=== PATIENT | female | born 1960 | race Caucasian/White ===

== ENCOUNTER 2021-02-24 18:24 | Emergency (ER) | payer OTHER ==
--- OUTSIDE RECORDS SUMMARY | 2021-02-24 18:27 | XMS REPORT | Continuity of Care Document ---
:1960 Author Organization [facility] t Address [address] [place] [address] Care Team Providers Name Role Phone Jesi FISHER, J. Primary Care Physician Yessy FISHER, M. Attending Clinician Phong REHMAN Attending Clinician Unavailable Payers Payer Name Policy Type Policy Effective Date Expiration Date Sour ce Number [facility] MEDICAREUNITED [id number] 2018 [facility] 00:00:00 [employer] [id number] Problems Condition Condition Condition Status Onset Resolution Last Treating Co mments Source Name Details Category Date Date Treatment Clinician Date Major Major Problem Active [place] depressive Depressive 4-26 da disorder Disorder 00:00: [facility] 00 al [facility] Disorder Disorder Problem Active [place]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 4-26 da 00:00: [facility] Other Other Disease Active 2017-09 [place] osteoporos osteoporos 1-21 Hi thodi is without is without 00:00: st current current 00 pathologic pathologic al al fracture fracture Avascular 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 Bharti ston necrosis necrosis - Method i 00:00: st 00 Adjustment 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 [facility]cop emotional Emotional al features Features Health Outreac h Program Allergies, Adverse Reactions, Alerts Allergy Allergy Status Severity Reaction(s) Onset Inactive Treating Comm ents Source Name Type Date Date Clinician milnacip DA Active SV 2020-0 [facility] [place] 00:00: [place] 00 [facility] codeine DA Active CA 2020-0 [facility] 3[facility]04 [place] 00[facility] oxycodon DA Active SV 2020-0 [facility] e [facility] [place] 00:[facility] quetiapi DA Active SV 2020-0 [facility] ne [facility]-04 [place] 00[facility] milnacip DA Active SV 2020-0 [facility] ran 3-04 [place] 00:00: [facility] oxycodon DA Active SV 2020-0 [facility] e [facility]-13 [place] 00:00: [facility] acetamin DA Active SV 2020-0 [facility] ophen 2-13 [place] 00:00: [facility] 00 [facility] quetiapi DA Active SV 2020-0 [facility] ne [facility]-13 [place] 00:00: [facility] 00 [facility] EVENITY DA Active SV 2020-0 [facility] 2[facility]13 [place] 00:00: [facility] 00 [facility] Milnacip Propensi Active 2017-09 [place] ran ty to 09-25 [facility] adverse 00:00: st reaction 00 s to drug codeine DA Active CA 2017-0 [facility] 5-10 [place] 00:00: [facility] 00 [facility] milnacip DA Active SV 2017-0 [facility] ran 5-10 [place] 00:00: [facility] 00 [facility] Family History Family Member Diagnosis Comments Start Date Stop Date Source Maternal grandmother Osteoporosis Tone Jama Natural mother Osteoporosis Esa Jama Social History Social Habit Start Date Stop Date Quantity Comments Source History SDOH [place] [facility] Binge Tobacco use and 2020-05-29 2020-05-29 Never used Esa Acharya ethodist exposure 00:00:00 00:00:00 Alcohol intake 2020-05-29 2020-05-29 Current Esa Roman thodist 00:00:00 00:00:00 non-drinker of alcohol (finding) History SDOH 2020-05-29 2020-05-29 1 See Meth odist Alcohol Frequency 00:00:00 00:00:00 Alcohol Comment 2018-07-26 2018-07-26 quit Esa Acharya ethodist 00:00:00 00:00:00 Sex [birth year] Esa Acharya ethodist 00:00:00 00:00:00 Smoking Status Start Date Stop Date Source Light Tobacco Smoker [facility] Current every day smoker 2020-05-29 00:00:00 Bharti Jama Medications Ordered Filled Start Stop Current Ordering Indication Dosage Frequency Signature Comments Components Source Medication Medication Date Date Medication? Clinician (SIG) Name Name mecobal/lev 2020-0 Yes Take by Bharti farfan omefolat 05-29 mouth. Methodi Ca/B6 phos 11:18: st (METANX 33 ORAL) oxyCODone-a 2020-0 Yes 1{tbl} Q4H Take 1 Ho [facility] cetaminophe 05-29 tablet by Met leslie lopez 11:18: mouth st (PERCOCET) 33 every 4 10-325 mg (four) per tablet hours as needed for moderate pain. ondansetron 2020-0 Yes 4mg Q8H Take 4 mg [place] (ZOFRAN) 4 -24 by mouth Metho di MG tablet 11:18: every 8 st 33 (eight) hours as needed for nausea or vomiting. CALCIUM 2020-0 Yes Take by Esa ORAL 05-29 mouth. Methodi 11:18: st 33 omega-3s/dh 2020-0 Yes Take by Bharti farfan a/epa/fish 05-29 mouth. Methodi oil (OMEGA 11:18: complex st 3 ORAL) 33 UNABLE TO 2020-0 Yes GeritalAsp [place] FIND 05-29 erceme Methodi 11:18: w/4% st 33 lidocaineV itamin- plus one take 2,000 IU D daily50 K v-d once a week TURMERIC 2020-0 Yes Take by Nixon lopez ORAL 05-29 mouth. Methodi 11:18: st 33 cholecalcif 2020-0 Yes Take by Bharti farfan rubin, 9-24 mouth. Methodi vitamin D3, 11:18: 2,[address] (VITAMIN D3 33 ORAL) aspirin 2020-0 Yes 81mg QD Take 81 mg [place] (ECOTRIN) 9-24 by mouth Method i 81 MG 11:18: daily. st enteric 33 coated tablet HYDROcodone 2020-0 Yes acute pain Q6H Take by Esa -acetaminop 9-24 mouth Methodi hen 11:18: every 6 st (ZAMCET) 33 (six) 10-325 hours as mg/15 mL(15 needed for mL) moderate solution pain .acute pain. diclofenac 2020-0 Yes 25mg Q.25D Take 25 mg See potassium 9-24 by mouth 4 Meth marquita (Zipsor) 25 11:18: (four) st mg capsule 33 times a day. tiZANidine 2020-0 Yes 4mg Q8H Take 4 mg [place] (ZANAFLEX) 9-24 by mouth Metho di 4 MG tablet 11:18: every 8 st 33 (eight) hours as needed for muscle spasms. cyclobenzap 2020-0 Yes 10mg [id number] Take 10 mg See rine 9- [id number] by mouth 3 Met hodi (FLEXERIL) 11:18: 3D (three) st 10 mg 33 times a tablet day as needed for muscle spasms. promethazin 2020-0 Yes 25mg Q6H Take 25 mg See e 9-24 by mouth Methodi (PHENERGAN) 11:18: every 6 st 25 MG 33 (six) tablet hours as needed for nausea or vomiting. clonIDINE 2020-0 Yes .1mg Q.5D Take 0.1 [place] (CATAPRES) 9-24 mg by Methodi 0.1 MG 11:18: mouth 2 st tablet 33 (two) times a day. nebivoloL 2020-0 Yes 10mg QD Take 10 mg [place] (BYSTOLIC) 9-24 by mouth Metho di 10 MG 11:18: daily. st tablet 33 levomefol-B 2020-0 Yes 1{capsu QD Take 1 [place] [id number] 9-24 le} capsule by Me thodi al oil 3 11:18: mouth st mg-35 mg-2 33 daily. mg -90.314 mg capsule ascorbate 2020-0 Yes Take by Brunilda on calcium 9-24 mouth. Methodi (VITAMIN C 11:12: [address] ORAL) 52 romosozumab Yes 210mg Q28D Inject 210 Esa -aqqg 9-24 mg under Methodi (EVENITY) 11:06: the skin st 210mg/2.34m 02 every 28 L ( days. 105mg/1.17m Lx2) pen needle, Yes Other Use one [place] diabetic 32 1-16 osteoporosi needle Methodi gauge x 00:00: s without daily st " 00 current needle pathologica l fracture traMADol 2017-09 Yes TK ONE T [place] (ULTRAM) 50 1-13 PO TID PRN Me thodi mg tablet 00:00: st 00 clonAZEPAM Yes Esa (KlonoPIN) 8-14 Methodi 1 MG tablet 00:00: st 00 diphenoxyla diphenoxyla No diphenoxyl [place] te-atropine te-atropine ate-atropi da 2.5 2.5 ne 2.5 [facility] mg-0.025 mg mg-0.025 mg mg-0.025 al tablet tablet mg tablet Health Outreac [facility] Program doxepin 5 % doxepin 5 % No doxepin 5 [place] topical topical % topical da cream cream cream [facility] Duexis 800 Duexis 800 No Duexis 800 [place] mg-26.6 mg mg-26.6 mg mg-26.6 mg da tablet tablet tablet [facility] ergocalcife ergocalcife No ergocalcif [place] rol rol rubin da (vitamin (vitamin (vitamin Epi scop D2) 1,250 D2) 1,250 D2) 1,250 al mcg (50,000 mcg (50,000 mcg H ealth unit) unit) (50,000 Outreac capsule capsule unit) h capsule Program eszopiclone eszopiclone No eszopiclon [place] 3 mg tablet 3 mg tablet e 3 mg da TAKE ONE TAKE ONE tablet [facility] op TABLET BY TABLET BY TAKE ONE a l MOUTH AT MOUTH AT TABLET BY He alth BEDTIME BEDTIME MOUTH AT Outre ac BEDTIME h Program famotidine famotidine No famotidine [place] 40 mg 40 mg 40 mg da tablet TAKE tablet TAKE tablet [facility] 1 TABLET BY 1 TABLET BY TAKE 1 al MOUTH TWICE MOUTH TWICE TABLET BY Health DAILY DAILY MOUTH Outreac TWICE h DAILY Program fentanyl 25 fentanyl 25 No fentanyl [place] mcg/hr mcg/hr 25 mcg/hr da transdermal transdermal transderma [facility] patch patch l patch mi Health Outreac [facility] Program flecainide flecainide No flecainide [place] 50 mg 50 mg 50 mg da tablet tablet tablet [facility] fluoxetine fluoxetine No fluoxetine [place] 20 mg 20 mg 20 mg da capsule capsule capsule [facility] gabapentin gabapentin No gabapentin [place] 600 mg tabs 600 mg tabs 600 mg da tabs [facility] gabapentin gabapentin No gabapentin [place] 300 mg 300 mg 300 mg da capsule capsule capsule [facility] p TABLET 1 TABLET 1 TABLET 1 al CAPSULE BY CAPSULE BY CAPSULE BY Health MOUTH 3 MOUTH 3 MOUTH 3 Outrea c TIMES A DAY TIMES A DAY TIMES A h DAY Program gabapentin gabapentin No gabapentin [place] 600 mg 600 mg 600 mg da tablet tablet tablet [facility] Gralise 600 Gralise 600 No Gralise [place] mg mg 600 mg da tablet,exte tablet,exte tablet,ext [facility] nded nded ended al release release release Health Outreac h Program hydrocodone hydrocodone No hydrocodon [place] 10 10 e 10 da mg-acetamin mg-acetamin mg-acetami [facility] ophen 325 ophen 325 nophen 325 al mg tablet mg tablet mg tablet Health Outreac [facility] Program hydroxyzine hydroxyzine No hydroxyzin [place] HCl 10 mg HCl 10 mg e HCl 10 d a tablet tablet mg tablet [facility] hydroxyzine hydroxyzine No hydroxyzin [place] HCl 25 mg HCl 25 mg e HCl 25 d a tablet tablet mg tablet [facility] ketorolac ketorolac No ketorolac [place] 10 mg 10 mg 10 mg da tablet tablet tablet [facility] levocetiriz levocetiriz No levocetiri [place] ine 5 mg ine 5 mg zine 5 mg da tablet TAKE tablet TAKE tablet [facility] ONE TABLET ONE TABLET TAKE ONE al BY MOUTH BY MOUTH TABLET BY He alth TWICE DAILY TWICE DAILY MOUTH Outreac TWICE h DAILY Program levofloxaci levofloxaci No levofloxac [place] n 500 mg n 500 mg in 500 mg da tablet tablet tablet [facility] Outreac h Program levothyroxi levothyroxi No levothyrox [place] ne 100 mcg ne 100 mcg ine 100 da tablet tablet mcg tablet Ep[facility] op [facility] Outreac [facility] Program lorazepam lorazepam No lorazepam [place] 0.5 mg 0.5 mg 0.5 mg da tablet tablet tablet [facility] Outreac h Program lorazepam 1 lorazepam 1 No lorazepam [place] mg tablet mg tablet [address] [facility] Outreac h Program meloxicam meloxicam No meloxicam [place] 15 mg 15 mg 15 mg da tablet tablet tablet [facility] Outreac h Program meloxicam meloxicam No meloxicam [place] 7.5 mg 7.5 mg 7.5 mg da tablet tablet tablet [facility] Outreac h Program methylpredn methylpredn No methylpred [place] isolone 4 isolone 4 nisolone 4 da mg tablets mg tablets mg tablets [facility] in a dose in a dose in a dose al pack pack pack [facility] Outre h Program metronidazo metronidazo No metronidaz [place] le 500 mg le 500 mg ole 500 mg da tablet tablet tablet [facility] Outreac h Program morphine ER morphine ER No morphine [place] 60 mg 60 mg ER 60 mg da tablet,exte tablet,exte tablet,ext [facility] nded nded ended al release release release Health TAKE 1 TAKE 1 TAKE 1 Outreac TABLET BY TABLET BY TABLET BY h MOUTH THREE MOUTH THREE MOUTH Program TIMES DAILY TIMES DAILY THREE TIMES DAILY ondansetron ondansetron No ondansetro [place] 8 mg 8 mg n 8 mg da disintegrat disintegrat disintegra [facility] ing tablet ing tablet ting al tablet [facility] Outreac h Program ondansetron ondansetron No ondansetro [place] HCl 4 mg HCl 4 mg n HCl 4 mg d a tablet tablet tablet [facility] Outreac h Program oseltamivir oseltamivir No oseltamivi [place] 75 mg 75 mg r 75 mg da capsule capsule capsule [facility] p [facility] Outreac h Program oxaprozin oxaprozin No oxaprozin [place] 600 mg 600 mg 600 mg da tablet tablet tablet [facility] oxycodone oxycodone No oxycodone [place] 10 mg 10 mg 10 mg da tablet tablet tablet [facility] oxycodone-a oxycodone-a No oxycodone- [place] cetaminophe cetaminophe acetaminop da n 10 mg-325 n 10 mg-325 hen 10 [facility] mg tablet mg tablet mg-325 mg al TAKE 1 TAKE 1 tablet Health TABLET(S) 4 TABLET(S) 4 TAKE 1 Outreac TIMES A DAY TIMES A DAY TABLET(S) h BY ORAL BY ORAL 4 TIMES A Prog artis ROUTE ROUTE DAY BY DIRECTED DIRECTED ORAL ROUTE FOR 28 FOR 28 DAYS. DAYS. DIRECTED FOR 28 DAYS. oxycodone-a oxycodone-a No oxycodone- [place] cetaminophe cetaminophe acetaminop da n 7.5 n 7.5 hen 7.5 [facility] mg-325 mg mg-325 mg mg-325 mg al tablet tablet tablet Health Outreac h Program Phenadoz Phenadoz No Phenadoz [place] 12.5 mg 12.5 mg 12.5 mg da rectal rectal rectal [facility] suppository suppository suppositor al y Health Outreac h Program prednisone prednisone No prednisone [place] 10 mg 10 mg 10 mg da tablet tablet tablet [facility] Prolia 60 Prolia 60 No Prolia 60 [place] mg/mL mg/mL mg/mL da subcutaneou subcutaneou subcutaneo [facility] s syringe s syringe us syringe al Health Outreac h Program promethazin promethazin No promethazi [place] e 25 mg e 25 mg ne 25 mg da tablet tablet tablet [facility] promethazin promethazin No promethazi [place] e e ne da hydrochlori hydrochlori hydrochlor [facility] de 25 mg de 25 mg tavo 25 mg al tabs tabs tabs Health Outreac h Program Promethazin Promethazin No Promethazi [place] e VC 6.25 e VC 6.25 ne VC 6.25 da mg-5 mg/5 mg-5 mg/5 mg-5 mg/5 [facility] mL oral mL oral mL oral al syrup syrup syrup Health Outreac h Program quetiapine quetiapine No quetiapine [place] 100 mg 100 mg 100 mg da tablet tablet tablet [facility] quetiapine quetiapine No quetiapine [place] 25 mg 25 mg 25 mg da tablet tablet tablet [facility] rizatriptan rizatriptan No rizatripta [place] 10 mg 10 mg n 10 mg da disintegrat disintegrat disintegra [facility] ing tablet ing tablet ting al tablet Health Outreac h Program Suprax 400 Suprax 400 No Suprax 400 [place] mg capsule mg capsule mg capsule da [facility] al [facility] tizanidine tizanidine No tizanidine [place] 4 mg tablet 4 mg tablet 4 mg d a TAKE 1 TAKE 1 tablet [facility] TABLET BY TABLET BY TAKE 1 al MOUTH THREE MOUTH THREE TABLET BY Health TIMES DAILY TIMES DAILY MOUTH Outreac THREE h TIMES Program DAILY tizanidine tizanidine No tizanidine [place] hydrochlori hydrochlori hydrochlor da de 4 mg de 4 mg tavo 4 mg [facility] tabs tabs tabs al Health Outreac h Program topiramate topiramate No topiramate [place] 25 mg 25 mg 25 mg da tablet tablet tablet [facility] tramadol 50 tramadol 50 No tramadol [place] mg tablet mg tablet 50 mg da TAKE 1 TAKE 1 tablet [facility] TABLET BY TABLET BY TAKE 1 al MOUTH EVERY MOUTH EVERY TABLET BY Health DAY FOR 7 DAY FOR 7 MOUTH Outr eac DAYS DAYS EVERY DAY h FOR 7 DAYS Program Trintellix Trintellix No Trintellix [place] 10 mg 10 mg 10 mg da tablet TAKE tablet TAKE tablet [facility] 1 TABLET BY 1 TABLET BY TAKE 1 al MOUTH EVERY MOUTH EVERY TABLET BY Health DAY DAY MOUTH Outreac EVERY DAY h Program Viibryd 40 Viibryd 40 No Viibryd 40 [place] mg tablet mg tablet mg tablet da [facility] al [facility] Outreac [facility] Program Zipsor 25 Zipsor 25 No Zipsor 25 [place] mg capsule mg capsule mg capsule da TAKE 1 TAKE 1 TAKE 1 [facility] CAPSULE BY CAPSULE BY CAPSULE BY al MOUTH THREE MOUTH THREE MOUTH Health TIMES DAILY TIMES DAILY THREE Outreac TIMES h DAILY Program acetaminoph acetaminoph No acetaminop [place] en 300 en 300 hen 300 da mg-codeine mg-codeine mg-codeine [facility] 30 mg 30 mg 30 mg al tablet tablet tablet Health Outreac h Program amitriptyli amitriptyli No amitriptyl [place] ne 50 mg ne 50 mg ine 50 mg da tablet tablet tablet [facility] mi [facility] Outreac [facility] Program amoxicillin amoxicillin No amoxicilli [place] [phone] da mg-potassiu mg-potassiu mg-potassi [facility] m m um al clavulanate clavulanate clavulanat Health 125 mg 125 mg e 125 mg Outreac tablet tablet tablet h Program azithromyci azithromyci No azithromyc [place] n 500 mg n 500 mg in 500 mg da tablet tablet tablet [facility] Out[facility] Program betamethaso betamethaso No betamethas [place] ne ne one da dipropionat dipropionat dipropiona [facility] e 0.05 % e 0.05 % te 0.05 % al topical topical topical Health cream cream cream Outreac h Program bupropion bupropion No bupropion [place] HCl XL 150 HCl XL 150 HCl XL 150 da mg 24 hr mg 24 hr mg 24 hr Epi scop tablet, tablet, tablet, al extended extended extended Hea lth release release release Outrea c h Program bupropion bupropion No bupropion [place] HCl XL 300 HCl XL 300 HCl XL 300 da mg 24 hr mg 24 hr mg 24 hr Epi scop tablet, tablet, tablet, al extended extended extended Hea lth release release release Outrea c h Program buspirone buspirone No buspirone [place] 7.5 mg 7.5 mg 7.5 mg da tablet tablet tablet [facility] Outreac [facility] Program Butrans 10 Butrans 10 No Butrans 10 [place] mcg/hour mcg/hour mcg/hour da transdermal transdermal transderma [facility] patch patch l patch mi Health Outreac h Program Bystolic 10 Bystolic 10 No Bystolic [place] mg tablet mg tablet 10 mg da tablet [facility] Outreac [facility] Program Bystolic 20 Bystolic 20 No Bystolic [place] mg tablet mg tablet 20 mg da tablet [facility] Outre[facility] Program calcitonin calcitonin No calcitonin [place] (salmon) (salmon) (salmon) da 200 200 200 [facility] unit/actuat unit/actuat unit/actua al ion nasal ion nasal tion nasal Health spray spray spray Outreac h Program celecoxib celecoxib No celecoxib [place] 200 mg 200 mg 200 mg da capsule capsule capsule [facility] p TABLET 1 TABLET 1 TABLET 1 al CAPSULE BY CAPSULE BY CAPSULE BY Health MOUTH TWICE MOUTH TWICE MOUTH Outreac A DAY A DAY TWICE A h DAY Program Chantix 0.5 Chantix 0.5 No Chantix [place] mg tablet mg tablet 0.5 mg da tablet [facility] al [facility] Chantix 1 Chantix 1 No Chantix 1 [place] mg tablet mg tablet mg tablet da [facility] mi [facility]re[facility] Program chlordiazep chlordiazep No chlordiaze [place] oxide 10 mg oxide 10 mg poxide 10 da capsule capsule mg capsule Epi scop al Health Outreac h Program cholestyram cholestyram No cholestyra [place] ine (with ine (with mine (with da sugar) 4 sugar) 4 sugar) 4 Epi scop gram powder gram powder gram a l for susp in for susp in powder for Health a packet a packet susp in a Ou treac packet h Program clobetasol clobetasol No clobetasol [place] 0.05 % 0.05 % 0.05 % da scalp scalp scalp [facility] solution solution solution al Health Outreac h Program clobetasol clobetasol No clobetasol [place] 0.05 % 0.05 % 0.05 % da topical topical topical [facility] p cream cream cream al Health Outreac h Program clobetasol clobetasol No clobetasol [place] 0.05 % 0.05 % 0.05 % da topical topical topical [facility] p ointment ointment ointment al Health Outreac h Program clonazepam clonazepam No clonazepam [place] 0.5 mg 0.5 mg 0.5 mg da tablet tablet tablet [facility] mi [facility] clonazepam clonazepam No clonazepam [place] 1 mg tablet 1 mg tablet 1 mg d a tablet [facility] mi [facility]re[facility] Program clonidine clonidine No clonidine [place] HCl 0.1 mg HCl 0.1 mg HCl 0.1 mg da tablet tablet tablet [facility] mi [facility]re[facility] Program cyclobenzap cyclobenzap No cyclobenza [place] rine 10 mg rine 10 mg brett 10 da tablet tablet mg tablet [facility] p al Health Outreac h Program cyclobenzap cyclobenzap No cyclobenza [place] rine 5 mg rine 5 mg brett 5 mg da tablet tablet tablet [facility] al [facility] Outre[facility] Program cyclobenzap cyclobenzap No cyclobenza [place] rine rine brett da hydrochlori hydrochlori hydrochlor [facility] de 10 mg de 10 mg tavo 10 mg al tabs tabs tabs Health Outreac h Program diclofenac diclofenac No diclofenac [place] 1 % topical 1 % topical 1 % d a gel gel topical [facility] gel al Health Outreac h Program diclofenac diclofenac No diclofenac [place] sodium 50 sodium 50 sodium 50 da mg mg mg [facility] tablet,omi tablet,omi tablet,del al yed release yed release ayed H ealth TAKE 1 TAKE 1 release Outreac TABLET BY TABLET BY TAKE 1 h MOUTH TWICE MOUTH TWICE TABLET BY Program DAILY DAILY MOUTH TWICE DAILY Vital Signs Vital Name Observation Time Observation Value Comments Source Systolic blood 2020-05-29 11:05:00 143 mm[Hg] Nixon Jama pressure Diastolic blood 2020-05-29 11:05:00 67 mm[Hg] Brunilda Jama pressure Heart rate 2020-05-29 11:05:00 91 /min Esa Jama Body height 2020-05-29 11:05:00 158.8 cm Esa Jama Body weight 2020-05-29 11:05:00 69.4 kg Esa Jama BMI 2020-05-29 11:05:00 27.54 kg/m2 Esa Jama Procedures Procedure Date / Time Performed Performing Clinician Sour e BONE DENSITY 2020-05-29 11:07:44 Wilebrt Krishnamurthy Plan of Care Planned Activity Planned Date Details Comments Source Future Scheduled Test 2021-04-05 INFLUENZA VACCINE H alberto [employer] 00:00:00 [code = INFLUENZA VACCINE] Future Scheduled Test 2012 BREAST CANCER Brunilda on [employer] 00:00:00 SCREENING [code = BREAST CANCER SCREENING] Future Scheduled Test 2012 COLONOSCOPY Nixon n [employer] 00:00:00 SCREENING [code = COLONOSCOPY SCREENING] Future Scheduled Test 2012 SHINGLES VACCINES H alberto [employer] 00:00:00 (#1) [code = SHINGLES VACCINES (#1)] Future Scheduled Test 1983 Screening for [place] [facility] 00:00:00 malignant neoplasm of cervix (procedure) [code = 231882976] Future Scheduled Test 1980 Hepatitis C [place] [facility] 00:00:00 screening (procedure) [code = 579873522] Future Scheduled Test 1974 COVID-19 VACCINE (1) Esa [employer] 00:00:00 [code = COVID-19 VACCINE (1)] Instructions [facility] m Encounters Start End Encounter Admission Attending Care Care Encounter Source Date/Time Date/Time Type Type Clinicians Facility Department ID 2019-07-19 Inpatient [facility] [id number] 07:14:00 [facility] 2020-11-12 2020-11-12 Domitila VAUGHN [facility] [id number] M [place] 00:00:00 00:00:00 Maria Isabel barajas, LINER CHECKER: [facility] [address] [place] [address] Progr am , Ph. ([phone]) --20072020-10-29 2020-10-29 Domitila VAUGHN [facility] [id number] M [place] 00:00:00 00:00:00 Maria Isabel barajas, LINER CHECKER: [facility] [address] [place] [address] Progr am , Ph. ([phone]) --20072020-10-15 2020-10-15 Domitila VAUGHN [facility] [id number] atagor 00:00:00 00:00:00 Maria Isabel noonan h, LINER CHECKER: [facility] [address] [place] [address] Progr am , Ph. ([phone]) --20072020-10-01 2020-10-01 Domitila VAUGHN [place] - [id number] M [place] 00:00:00 00:00:00 Maria Isabel noonan h, LINER CHECKER: [facility] [address] HOP - [place] [address] Progr am , Ph. ([phone]) --20072020-07-16 2020-07-16 Domitila VAGUHN [place] - [id number] M [place] 00:00:00 00:00:00 Maria Isabel barajas, LINER CHECKER: [facility] [address] HOP - [place] [address] Progr am , Ph. ([phone]) --20072020-07-02 2020-07-02 Domitila VAUGHN [place] - [id number] M [place] 00:00:00 00:00:00 Maria Isabel barajas, LINER CHECKER: [facility] [address] HOP - [place] [address] Progr am , Ph. ([phone]) --20072020-06-25 2020-06-25 Domitila VAUGHN [place] - [id number] M at[place] 00:00:00 00:00:00 Maria Isabel barajas, LINER CHECKER: [facility] [address] HOP - [place] [address] Progr am , Ph. ([phone]) --20072020-06-04 2020-06-04 Domitila VAUGHN [place] - [id number] M at[place]or 00:00:00 00:00:00 Paulino-Vito noonan h, LINER CHECKER: [facility] [address] HOP [place] [address] Progr am , Ph. ([phone]) --20072020-05-29 2020-05-29 Outpatient [facility], [facility] [id number] [address] [place] [address] 00:00:00 00:00:00 WILBERT Leal Method i 2020-05-29 2020-05-29 Outpatient PETAK, [facility] [id number] [address] [place] [address] 00:00:00 00:00:00 WILBERT [address] 2020-04-09 2020-04-09 Domitila VAUGHN [place] - [id number] M atagor 00:00:00 00:00:00 Paulino-Vito ononan h, LINER CHECKER: Hinduism Episco p 1700 HOP - MEHOP omkar Hanson [facility] [address] [facility] , Ph. ([phone]) --20072020-02-03 2020-02-03 Emergency E MHFB MHFB 7501 MHFB 22:08:00 22:08:00 2020-01-24 2020-01-24 Domitila VAUGHN [place] - [id number] M atagor 00:00:00 00:00:00 Paulino-Vito noonan h, LINER CHECKER: Hinduism Episco p 1700 HOP - MEHOP omkar Hanson [facility] [address] [facility] , Ph. ([phone] 245--20072019-10-04 2019-10-04 Domitila VAUGHN [place] - [id number] M atagor 00:00:00 00:00:00 Paulino-Vito noonan h, LINER CHECKER: Hinduism Episco p 1700 HOP - MEHOP al [facility], [facility], [facility] Program [address] , Ph. ([phone]) --20072019-09-27 2019-09-27 Domitila VAUGHN [place] - [id number] M atagor 00:00:00 00:00:00 Paulino-Vito kirby a h, LINER CHECKER: Hinduism Episco p 1700 HOP - MEHOP al [facility], [facility], [facility] [place] Program [address] , Ph. ([phone]) --20072019-09-13 2019-09-13 Domitila VAUGHN [place] - [id number] M atagor 00:00:00 00:00:00 Bob-Vito Mcleod d a h, LINER CHECKER: Hinduism Episco p 1700 HOP - MEHOP al [facility] [address], [address], [facility] [place] Program [address] , Ph. ([phone]) 2019-07-17 2019-07-17 Domitila VAUGHN [place] - [id number] M atagor 00:00:00 00:00:00 Bob-Vito Mcleod d a h, LINER CHECKER: Hinduism Episco p 1700 HOP - MEHOP al [facility] [address], [address], [facility] [place] Program [address] , Ph. ([phone]) 2019-06-05 2019-06-05 Domitila VAUGHN [place] - [id number] M atagor 00:00:00 00:00:00 Bob-Vito Mcleod d a h, LINER CHECKER: Hinduism Episco p 1700 HOP - MEHOP al [facility] [address], [address], [facility] [place] Program [address] , Ph. ([phone]) 2019-05-09 2019-05-09 Domitila VAUGHN [place] - [id number] M atagor 00:00:00 00:00:00 Bob-Vito Mcleod d a h, LINER CHECKER: Hinduism Episco p 1700 HOP - MEHOP al [facility] [address], [address], [facility] [place] Program [address] , Ph. ([phone]) 2019-04-17 2019-04-17 Domitila VAUGHN [place] - [id number] M atagor 00:00:00 00:00:00 Bob-Vito Mcleod d a h, LINER CHECKER: Hinduism Episco p 1700 HOP - MEHOP al [facility] [address], [address], [facility] [place] Program [address] , Ph. ([phone]) Results Test Description Test Time Test Comments Results Result Comments Source BASIC METABOLIC PANEL 2020-08-08 06:24:00 Test Item Value Reference Range Interpretation Comme nts SODIUM (test code = NA) 139 mmol/L 136-145 N POTASSIUM (test code = K) 4.2 mmol/L 3.5-5.1 N CHLORIDE (test code = CL) 104.0 mmol/L 98-107 N CARBON DIOXIDE (test code = 27.0 mmol/L 21-32 N CO2) GLUCOSE (test code = GLU) 128 mg/dL 70-110 H BLOOD UREA NITROGEN (test code 16 mg/dL 7-18 N = BUN) GLOMERULAR FILTRATION RATE 73.9 >60 U nit of measure: (test code = GFR) mL/min/1.7 3 d3Iikavtnfw Range:Healthy A dults >90 mL/min/1.73 m2 For Chronic Kidney Disease: Stage II Mi ld Decrease in GFR 60-9 0 Stage III Moderate Decrease in GFR 30-59 Stage IV Severe Decrease in GFR 15-29 Stage V Kidney Failure <15 CREATININE (test code = CREAT) 0.80 mg/dL 0.55-1.30 N CALCIUM (test code = CA) 8.1 mg/dL 8.2-10.1 L HGB [id number] 05:53:00 Test Item Value Reference Range Interpretation Comments HEMOGLOBIN (test code = HGB) 10.4 g/dL 12-16 L HEMATOCRIT (test code = HCT) 32.3 % 37-47 L CBC W/MANUAL [id number] 07:58:00 Test Item Value Reference Range Interpretation Comments WHITE BLOOD CELL (test code 13.4 K/mm3 5.8-11.0 H = WBC) RED BLOOD CELL (test code = 3.19 M/mm3 4.2-5.4 L RBC) HEMOGLOBIN (test code = HGB) 10.5 g/dL 12-16 L HEMATOCRIT (test code = HCT) 32.4 % 37-47 L MEAN CELL VOLUME (test code 102 fL 80-98 H = MCV) MEAN CELL HGB (test code = 32.9 pg 27-34 N MCH) MEAN CELL HGB CONCENTRATION 32.4 g/dL 30.8-34.1 N (test code = MCHC) RED CELL DISTRIBUTION WIDTH 12.9 % 11-16 N (test code = RDW) PLT (test code = PLT) 233 K/mm3 130-400 N MEAN PLATELET VOLUME (test 11.5 fL 8.9-12.1 N code = MPV) STAIN ACCEPTABILITY (test STAIN ACCEPTABLE code = STN ACCEPTABLE) CELLS COUNTED (test code = 100 >100 TCC) SEGMENTED NEUTROPHILS (test 93 % 50-65 H code = SEG) LYMPHOCYTE (test code = 7 % 20-40 LL LYMPH) NUCLEATED RED BLOOD CELL 0 % 0-0 N (test code = NRBC) SPECIMEN COMMENT: POD #1- XR SHOULDER 1 V [id number] 07:48:00 [facility] : 1960 Sex: F Patient Name: KAREN BREEN Unit No: [id number] EXAMS: CPT CODE: [id number] XR SHOULDER 1 [place] [address]194 AP portable right shoulder COMMENT: The patient is status post reverse prosthesis placement which is articulating normally. at 0748 Reported and signed by: Ebenezer Cochran MD CC: Scar Smith MD Technologist: RONNELL BARRON RT(R) Transcribed D/ (0748) [email or web address] [facility] NAME: KAREN BREEN [address] [facility] PHYS: Scar Garcia : AGE: 59 SEX: F [place], [place] [address] LOC: Y.515 A PHONE #: [phone] EXAM DATE: 08/06/2020 STATUS: ADM IN FAX #: [phone] RAD #: D/C DT PAGE 1 Signed Report Patient Name: KAREN BREEN Unit No: [id number] EXAMS: CPT CODE: [id number] XR SHOULDER 1 V RT [address]346 <Continued> Orig Print D/T: S: 08/07/2020 (0751) [facility] NAME: KAREN BREEN [address] [facility] [address] PHYS: HEMALATHA Scar Peacock : 1960 AGE: 59 SEX: F [place], [place] [address] LOC: Y.515 A PHONE #: [phone] EXAM DATE: 08/06/2020 STATUS: ADM IN FAX #: [phone] RAD #: D/CDT PAGE 2 Signed ReportCBC W/MANUAL DIFF 2020-08-07 06:16:00 Test Item Value Reference Range Interpretation Comments WHITE BLOOD CELL (test code = WBC) 13.4 K/mm3 5.8-11.0 H RED BLOOD CELL (test code = RBC) 3.19 M/mm3 4.2-5.4 L HEMOGLOBIN (test code = HGB) 10.5 g/dL 12-16 L HEMATOCRIT (test code = HCT) 32.4 % 37-47 L MEAN CELL VOLUME (test code = MCV) 102 fL 80-98 H MEAN CELL HGB (test code = MCH) 32.9 pg 27-34 N MEAN CELL HGB CONCENTRATION (test 32.4 g/dL 30.8-34.1 N code = MCHC) RED CELL DISTRIBUTION WIDTH (test 12.9 % 11-16 N code = RDW) PLT (test code = PLT) 233 K/mm3 130-400 N MEAN PLATELET VOLUME (test code = 11.5 fL 8.9-12.1 N MPV) STAIN ACCEPTABILITY (test code = STN ACCEPTABLE) CELLS COUNTED (test code = TCC) >100 SEGMENTED NEUTROPHILS (test code = % 50-65 SEG) LYMPHOCYTE (test code = LYMPH) % 20-40 NUCLEATED RED BLOOD CELL (test 0 % 0-0 N code = NRBC) SPECIMEN COMMENT: POD #1CBC W/AUTO [id number] 06:05:00 Test Item Value Reference Range Interpretation Comments WHITE BLOOD CELL (test 13.4 K/mm3 5.8-11.0 H code = WBC) RED BLOOD CELL (test 3.19 M/mm3 4.2-5.4 L code = RBC) HEMOGLOBIN (test code = 10.5 g/dL 12-16 L HGB) HEMATOCRIT (test code = 32.4 % 37-47 L HCT) MEAN CELL VOLUME (test 102 fL 80-98 H code = MCV) MEAN CELL HGB (test code 32.9 pg 27-34 N = MCH) MEAN CELL HGB 32.4 g/dL 30.8-34.1 N CONCENTRATION (test code = MCHC) RED CELL DISTRIBUTION 12.9 % 11-16 N WIDTH (test code = RDW) PLT (test code = PLT) 233 K/mm3 130-400 N MEAN PLATELET VOLUME 11.5 fL 8.9-12.1 N (test code = MPV) NEUTROPHIL % (test code 91.5 % 45-70 H = NT%) LYMPHOCYTE % (test code 5.3 % 20-40 L = LY%) MONOCYTE % (test code = 2.7 % 3-10 L MO%) EOSINOPHIL % (test code 0.0 % 1-5 L = EO%) BASOPHIL % (test code = 0.1 % 0.0-1.1 N BA%) NEUTROPHIL # (test code 12.30 K/mm3 2.00-7.50 H = NT#) LYMPHOCYTE # (test code 0.71 K/mm3 1.50-4.00 L = LY#) MONOCYTE # (test code = 0.36 K/mm3 0.2-0.8 N MO#) EOSINOPHIL # (test code 0.00 K/mm3 0.04-0.4 L = EO#) BASOPHIL # (test code = 0.01 K/mm3 0.02-0.10 L BA#) MANUAL DIFF REQUIRED YES MANUAL DIFF MANUAL DIFF (test code = MDIFF) REQUIRED . NUCLEATED RED BLOOD CELL 0 % 0-0 N (test code = NRBC) SPECIMEN COMMENT: POD #1CBC W/MANUAL [id number] 06:05:00 Test Item Value Reference Range Interpretation Comments STAIN ACCEPTABILITY (test code = STN ACCEPTABLE) CELLS COUNTED (test code = TCC) >100 SEGMENTED NEUTROPHILS (test code = SEG) % 50-65 LYMPHOCYTE (test code = LYMPH) % 20-40 SPECIMEN COMMENT: POD #1PROTHROMBIN [id number] 14:57:00 Test Item Value Reference Range Interpretation Comments PROTHROMBIN TIME 10.8 secs 10.1-12.5 N PATIENT (test code = PTP) INTERNATIONAL NORMAL 0.96 <2.0 RECOMME NDED THERAPEUTIC RATIO (test code = RANGE FOR ORAL INR) ANTICOAGULANTTR EATMENT: CONDI TION INRProphylaxis of venous thrombos is in 2.0 - 3.0 high-risk medic al or surgical patientsTreatme nt of venous thrombos is 2.0 - 3.0Prevention o f embolism 2.0 - 3.0Prevention o f recurrent embol ism, or 3.0 - 4. 5 patients with mechanical pros thetic intravascular v thomas IS PATIENT ON ANTICOAGULANTS ? YLIST ANTICOAGULANT/ANTI PLT MEDICATION : AspirinHas Lab been notified if Patient is on Heparin Drip? NOIf Yes, order CBC, OCCULT BLOOD, PT every other day NTHROMBOPLASTIN TIME [id number] 14:57:00 Test Item Value Reference Range Interpretation Comments PTT ACTIVATED (test code = APTT) 28.2 secs 24.9-37.0 N IS PATIENT ON ANTICOAGULANTS ? YLIST ANTICOAGULANT/ANTI PLT MEDICATION : AspirinHas Lab been notified if Patient is on Heparin Drip? NOIf Yes, order CBC, OCCULT BLOOD, PT every other day NCOMPREHENSIVE METABOLIC [id number] 14:56:00 Test Item Value Reference Range Interpretation Comments SODIUM (test code = 137 mmol/L 136-145 N NA) POTASSIUM (test code = 4.6 mmol/L 3.5-5.1 N K) CHLORIDE (test code = 101.0 mmol/L 98-107 N CL) CARBON DIOXIDE (test 23.5 mmol/L 21-32 N code = CO2) GLUCOSE (test code = 87 mg/dL 70-110 N GLU) BLOOD UREA NITROGEN 27 mg/dL 7-18 H (test code = BUN) GLOMERULAR FILTRATION 49.6 >60 Unit o f measure: RATE (test code = GFR) mL/mi n/1.73 [id number] Range:Healthy Adults >90 mL/min/1.73 m2 For Chronic Kidney Disease: St age II Mild Decrease in GFR 60-90 St age III Moderate Decrease in GFR 30-59 Stage IV Severe Decre ase in GFR 15- 29 Stage V Kidney Failure <15 CREATININE (test code 1.13 mg/dL 0.55-1.30 N = CREAT) TOTAL PROTEIN (test 7.2 g/dL 6.4-8.2 N code = PROT) ALBUMIN (test code = 4.0 g/dL 3.4-5.0 N ALB) GLOBULIN (test code = 3.2 g/dL 2.2-4.2 N GLOB) ALBUMIN/GLOBULIN RATIO 1.3 0.7-2.0 N (test code = A/G) CALCIUM (test code = 9.3 mg/dL 8.2-10.1 N CA) BILIRUBIN TOTAL (test 0.40 mg/dL 0.2-1.00 N code = BILT) SGOT/AST (test code = 39.0 U/L 15-37 H AST) SGPT/ALT (test code = 69.0 U/L 12-78 N Please note new ALT) normal range. ALKALINE PHOSPHATASE 123 U/L 46-116 H TOTAL (test code = ALKP) CBC W/AUTO [id number] 14:42:00 Test Item Value Reference Range Interpretation Comments WHITE BLOOD CELL (test code = WBC) 7.1 K/mm3 5.8-11.0 N RED BLOOD CELL (test code = RBC) 3.65 M/mm3 4.2-5.4 L HEMOGLOBIN (test code = HGB) 12.1 g/dL 12-16 N HEMATOCRIT (test code = HCT) 36.1 % 37-47 L MEAN CELL VOLUME (test code = MCV) 99 fL 80-98 H MEAN CELL HGB (test code = MCH) 33.2 pg 27-34 N MEAN CELL HGB CONCENTRATION (test 33.5 g/dL 30.8-34.1 N code = MCHC) RED CELL DISTRIBUTION WIDTH (test 13.2 % 11-16 N code = RDW) PLT (test code = PLT) 272 K/mm3 130-400 N MEAN PLATELET VOLUME (test code = 11.5 fL 8.9-12.1 N MPV) NEUTROPHIL % (test code = NT%) 56.3 % 45-70 N LYMPHOCYTE % (test code = LY%) 33.6 % 20-40 N MONOCYTE % (test code = MO%) 8.9 % 3-10 N EOSINOPHIL % (test code = EO%) 0.1 % 1-5 L BASOPHIL % (test code = BA%) 1.0 % 0.0-1.1 N NEUTROPHIL # (test code = NT#) 3.98 K/mm3 2.00-7.50 N LYMPHOCYTE # (test code = LY#) 2.38 K/mm3 1.50-4.00 N MONOCYTE # (test code = MO#) 0.63 K/mm3 0.2-0.8 N EOSINOPHIL # (test code = EO#) 0.01 K/mm3 0.04-0.4 L BASOPHIL # (test code = BA#) 0.07 K/mm3 0.02-0.10 N MANUAL DIFF REQUIRED (test code = NO MANUAL DIFF MDIFF) NUCLEATED RED BLOOD CELL (test 0 % 0-0 N code = NRBC) - CT UP EXTREM W/O CONT [id number] 11:41:00 [facility] : 1960 Sex: F Patient Name: KAREN BREEN Unit No: [id number] Report Has Been Amended EXAMS: CPT CODE: [id number] [place] EXTREM W/[place] [address] Addendum - 07/08/2020 SIGNED 07/08/2020 ADDENDUM: [id number] CT/CTUEWOLT ADDENDUM: There is a complete avulsion of the subscapularis tendon which is retracted to the glenohumeral joint and there is mild muscular atrophy. at 1141 Reported and signed by: Ebenezer Cochran MD Report TECHNIQUE: Volumetric CT data of the left shoulder was obtained without use of intravenous contrast. Images were then viewed in the axial, coronal and sagittal planes. COMPARISON: None. FINDINGS: Sequela of left humeral head osteonecrosis is demonstrated with articular surface collapse measuring 23 mm transversely and 27 mm in craniocaudal dimension.There is associated fragmentation with a few intra-articular bodies seen within the subcoracoid bursa measuring up to 8 mm. Moderate glenohumeral osteoarthritis is demonstrated with narrowing of the joint space greatest inferiorly. Mild AC joint degenerative change. Rotator cuff muscle volume is maintained. Visualized left lung is clear. 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 at 0853 Reported and signed by: Bandar Gibson M.D. CC: Scar Smith MD Technologist: Justine Sellers RT(R),(CT),RVT CTDI: DLP: Trnscrpt: 12/10/2016 (0853) JulianoJ [facility] NAME: KAREN BREEN [address] [facility] PHYS: JALILTONYScooter Scar Peacock : 1960 AGE: 56 SEX: F [place] [address] LOC: UNVast PHONE #: [phone] EXAM DATE: 12/09/2016 STATUS: [email or web address] FAX #: [phone] RAD #: D/C DT PAGE 1 Signed Report Patient Name: KAREN BREEN Unit No: [id number] Report Has Been Amended EXAMS: CPT CODE: [id number] CT UP EXTREM W/[place] [address] < Continued> Orig Print D/T: S: 12/10/2016 (0857) [facility] NAME: KAREN BREEN [address] [facility] PHYS: HEMALATHA SmithScar Calderon : 1960 AGE: 56 SEX: F [place] [address] LOC: UNVast PHONE #: [phone] EXAM DATE: 12/09/2016 STATUS: [email or web address] FAX #:[phone] RAD #: D/C DT PAGE 2 Signed Report- XR ARTHROGRAM SHLDR RT 2020-05-21 15:51:00 Patient Name: KAREN BREEN Unit No: [id number] EXAMS: CPT CODE: [id number] [place] [address] RIGHT SHOULDER ARTHROGRAM AND ASPIRATION DIAGNOSIS: Noevidence for rotator cuff tear. 4 mL of bloody fluid was aspirated and sent for analysis. COMMENT: COMPARISON: No prior exams available. After informed consent was obtained a shoulder aspiration was followed by a single-contrast arthrogram performed with Isovue-300 . 0.3 minutes of fluoroscopy time was utilized. There was normal filling of the joint. No leakage of contrast into the rotator cuff was seen on an AP radiograph. No immediate complications were encountered. CT OF THE RIGHT SHOULDER POSTARTHROGRAPHY WITH SAGITTAL AND CORONAL RECONSTRUCTIONS DIAGNOSIS: The patient is status post arthroplasty. There is metal artifact. There is a possible break of the posterior superior aspect of the glenoid component of the prosthesis. There is irregularity of the posterior superior head which. No loosening is seen. There is no definite evidence for an intra- articular loose body. COMMENT: COMPARISON: No prior exams available. Scans were performed with thin sections post arthrography and reconstructions were obtained. Postsurgical changes are present as noted. The joint is distended with contrast. There is no evidence for rotator cuff tear or atrophy. No loose bodies are identified. at 1551 Reported and signed by: Ebenezer Cochran MD CC: Scar Smith MD Technologist: RT Za.(R) Transcribed D/ (2485) [email or web address] [facility] NAME: KAREN BREEN [address] [facility] PHYS: EDWTH Scar Peacock :1960 AGE: 59 SEX: F [place], [place] [address] LOC: Y.RAD PHONE #: [phone] EXAM DATE: 05/21/2020 STATUS: REG CLI FAX #: [phone] RAD #: D/C DT PAGE 1 Signed Report Patient Name: KAREN BREEN Unit No: [id number] EXAMS: CPT CODE: [id number] [place] [address] <Continued> Orig Print D/T: S: 05/21/2020 (6645) [facility] NAME: KAREN BREEN [address] [facility] PHYS: HEMALATHA Harris LuisScar Calderon : 1960 AGE: 59 SEX: F [place] [id number] LOC: JANA PHONE #: [phone] EXAM DATE: 05/21/2020 STATUS: REG CLI FAX #: [phone] RAD #: D/C DT PAGE 2 Signed Report- CT UP EXTREM W/CONT [id number] 15:51:00 Patient Name: KAREN BREEN Unit No: [id number] EXAMS: CPT CODE: [id number] [place] UP EXTREM W/[place] [address] RIGHT SHOULDER ARTHROGRAM AND ASPIRATION DIAGNOSIS: No evidence for rotator cuff tear. 4 mL of bloody fluid was aspirated and sent for analysis. COMMENT: COMPARISON: No prior exams available. After informedconsent was obtained a shoulder aspiration was followed by a single-contrast arthrogram performed with Isovue-300 . 0.3 minutes of fluoroscopy time was utilized. There was normal filling of the joint. No leakage of contrast into the rotator cuff was seen on an AP radiograph. No immediate complications were encountered. CT OF THE RIGHT SHOULDER POST ARTHROGRAPHY WITH SAGITTAL AND CORONAL RECONSTRUCTIONS DIAGNOSIS:The patient is status post arthroplasty. There is metal artifact. There is a possible break of the posterior superior aspect of the glenoid component of the prosthesis. There is irregularity of the posterior superior head which. No loosening is seen. There is no definite evidence for an intra-articular loose body. COMMENT: COMPARISON: No prior exams available. Scans were performed with thin sections post arthrography and rec onstructions were obtained. Postsurgical changes are present as noted. The joint is distended with contrast. There is no evidence for rotator cuff tear or atrophy. No loosebodies are identified. at 1551 Reported and signed by: Ash Cochran MD CC: Scar Smith MD Technologist: Kvng Ortega,RT(R) CTDI: DLP: Trnscrpt: 05/21/2020 (0934) BeliaL [facility] NAME: KAREN BREEN [address] [facility] PHYS: Scar Garcia : 1960 AGE: 59 SEX: F [place], [place] [address] LOC: LinetteRAD PHONE #: [phone] EXAM DATE: 05/21/2020 STATUS: REG CLI FAX #: [phone] RAD #: D/C DT PAGE 1 Signed Report Patient Name: KAREN BREEN Unit No: [id number] EXAMS: CPT CODE: [id number] CT [place] EXTREM W/[place] [address] <Continued> Orig Print D/T: S: 05/21/2020 (1555) [facility] NAME: KAREN BREEN [address] [facility] PHYS: Scar Garcia : 1960 AGE: 59 SEX: F [place] [address] LOC: YAnaRAD PHONE #: [phone] EXAM DATE: 05/21/2020 STATUS: REG CLI FAX #: [phone] RAD #: D/C DT PAGE 2 Signed ReportC REACTIVE [id number] 19:41:00 Test Item Value Reference Range Interpretation Comments C REACTIVE PROTEIN (test code = < 0.2 mg/dL <0.9 CRP) CBC W/AUTO [id number] 18:06:00 Test Item Value Reference Range Interpretation Comments WHITE BLOOD CELL (test code = WBC) 6.9 K/mm3 5.8-11.0 N RED BLOOD CELL (test code = RBC) 4.23 M/mm3 4.2-5.4 N HEMOGLOBIN (test code = HGB) 13.0 g/dL 12-16 N HEMATOCRIT (test code = HCT) 38.8 % 37-47 N MEAN CELL VOLUME (test code = MCV) 92 fL 80-98 N MEAN CELL HGB (test code = MCH) 30.7 pg 27-34 N MEAN CELL HGB CONCENTRATION (test 33.5 g/dL 30.8-34.1 N code = MCHC) RED CELL DISTRIBUTION WIDTH (test 13.4 % 11-16 N code = RDW) PLT (test code = PLT) 295 K/mm3 130-400 N MEAN PLATELET VOLUME (test code = 10.9 fL 8.9-12.1 N MPV) NEUTROPHIL % (test code = NT%) 54.7 % 45-70 N LYMPHOCYTE % (test code = LY%) 35.4 % 20-40 N MONOCYTE % (test code = MO%) 8.3 % 3-10 N EOSINOPHIL % (test code = EO%) 0.1 % 1-5 L BASOPHIL % (test code = BA%) 1.2 % 0.0-1.1 H NEUTROPHIL # (test code = NT#) 3.78 K/mm3 2.00-7.50 N LYMPHOCYTE # (test code = LY#) 2.44 K/mm3 1.50-4.00 N MONOCYTE # (test code = MO#) 0.57 K/mm3 0.2-0.8 N EOSINOPHIL # (test code = EO#) 0.01 K/mm3 0.04-0.4 L BASOPHIL # (test code = BA#) 0.08 K/mm3 0.02-0.10 N MANUAL DIFF REQUIRED (test code = NO MANUAL DIFF MDIFF) NUCLEATED RED BLOOD CELL (test 0 % 0-0 N code = NRBC) SED [id number] 18:06:00 Test Item Value Reference Range Interpretation Comments SED RATE (test code = SEDW) 9 mm/hr 0-20 N CBC W/AUTO [id number] 16:34:00 Test Item Value Reference Range Interpretation Comments WHITE BLOOD CELL (test code = WBC) 6.9 K/mm3 5.8-11.0 N RED BLOOD CELL (test code = RBC) 4.23 M/mm3 4.2-5.4 N HEMOGLOBIN (test code = HGB) 13.0 g/dL 12-16 N HEMATOCRIT (test code = HCT) 38.8 % 37-47 N MEAN CELL VOLUME (test code = MCV) 92 fL 80-98 N MEAN CELL HGB (test code = MCH) 30.7 pg 27-34 N MEAN CELL HGB CONCENTRATION (test 33.5 g/dL 30.8-34.1 N code = MCHC) RED CELL DISTRIBUTION WIDTH (test 13.4 % 11-16 N code = RDW) PLT (test code = PLT) 295 K/mm3 130-400 N MEAN PLATELET VOLUME (test code = 10.9 fL 8.9-12.1 N MPV) NEUTROPHIL % (test code = NT%) 54.7 % 45-70 N LYMPHOCYTE % (test code = LY%) 35.4 % 20-40 N MONOCYTE % (test code = MO%) 8.3 % 3-10 N EOSINOPHIL % (test code = EO%) 0.1 % 1-5 L BASOPHIL % (test code = BA%) 1.2 % 0.0-1.1 H NEUTROPHIL # (test code = NT#) 3.78 K/mm3 2.00-7.50 N LYMPHOCYTE # (test code = LY#) 2.44 K/mm3 1.50-4.00 N MONOCYTE # (test code = MO#) 0.57 K/mm3 0.2-0.8 N EOSINOPHIL # (test code = EO#) 0.01 K/mm3 0.04-0.4 L BASOPHIL # (test code = BA#) 0.08 K/mm3 0.02-0.10 N MANUAL DIFF REQUIRED (test code = NO MANUAL DIFF MDIFF) NUCLEATED RED BLOOD CELL (test 0 % 0-0 N code = NRBC) SED [id number] 16:34:00 Test Item Value Reference Range Interpretation Comments SED RATE (test code = SEDW) mm/hr 0-20 - XR CHEST 1 [id number] 14:04:00 Patient Name: KAREN BREEN Unit No: [id number] EXAMS: CPT CODE: [id number] XR CHEST 1 V 14583 IMAGES PROVIDED: One frontal view of the chest is provided. COMPARISON: None FINDINGS: Left subclavian catheter is in place with tip near the cavoatrial junction. Lungs are clear. The right hemidiaphragm is elevated. The heart size and pulmonary vasculature are normal. No pleural effusion or pneumothorax. Bilateral shoulder arthro plasties are noted. IMPRESSION: Left subclavian catheter as above. at 1404 Reported and signed by: Bandar Gibson M.D. CC: Payton Agosto MD; Scar Smith MD Technologist: ANDRES CHAPA (RT.R) Transcribed D/ ([id number]) [facility] NAME: KAREN BREEN [id number] [facility] [address] PHYS: Payton Meng : 1960 AGE: 59 SEX: F [place] [address] LOC: Y.319 A PHONE #: [phone] EXAM DATE: 11/07/2019 STATUS: ADM IN FAX #: [phone] RAD #: D/C DT PAGE 1 Signed Report Patient Name: KAREN BREEN Unit No: [id number] EXAMS: CPT CODE: [id number] XR CHEST 1 V [id number] <Continued> Orig Print D/T: S: 11/08/2019 (1407) [facility] NAME: KAREN BREEN [id number] [facility] [address] PHYS: Payton Meng : 1960 AGE: 59 SEX: F [place] [address] LOC: Y.319 A PHONE #: [phone] EXAM DATE: 11/07/2019 STATUS: ADM IN FAX #: [phone] RAD #: D/C DT PAGE 2 Signed ReportBASI METABOLIC [id number] 06:33:00 Test Item Value Reference Range Interpretation Comments SODIUM (test code = 142 mmol/L 136-145 N NA) POTASSIUM (test code = 4.5 mmol/L 3.5-5.1 N K) CHLORIDE (test code = 104.0 mmol/L 98-107 N CL) CARBON DIOXIDE (test 27.3 mmol/L 21-32 N code = CO2) GLUCOSE (test code = 162 mg/dL 70-110 H GLU) BLOOD UREA NITROGEN 8 mg/dL 7-18 N (test code = BUN) GLOMERULAR FILTRATION 68.9 >60 Unit o f measure: RATE (test code = GFR) mL/mi n/1.73 [id number] Range:Healthy Adults >90 mL/min/1.73 m2 For Chronic Kidney Disease: St age II Mild Decrease in GFR 60-90 St age III Moderate Decrease in GFR 30-59 Stage IV Severe Decre ase in GFR 15- 29 Stage V Kidney Failure <15 CREATININE (test code 0.85 mg/dL 0.55-1.30 N = CREAT) CALCIUM (test code = 8.6 mg/dL 8.2-10.1 N CA) CBC W/AUTO [id number] 05:53:00 Test Item Value Reference Range Interpretation Comments WHITE BLOOD CELL (test code = WBC) 11.2 K/mm3 5.8-11.0 H RED BLOOD CELL (test code = RBC) 3.70 M/mm3 4.2-5.4 L HEMOGLOBIN (test code = HGB) 11.0 g/dL 12-16 L HEMATOCRIT (test code = HCT) 33.8 % 37-47 L MEAN CELL VOLUME (test code = MCV) 91 fL 80-98 N MEAN CELL HGB (test code = MCH) 29.7 pg 27-34 N MEAN CELL HGB CONCENTRATION (test 32.5 g/dL 30.8-34.1 N code = MCHC) RED CELL DISTRIBUTION WIDTH (test 12.5 % 11-16 N code = RDW) PLT (test code = PLT) 269 K/mm3 130-400 N MEAN PLATELET VOLUME (test code = 11.4 fL 8.9-12.1 N MPV) NEUTROPHIL % (test code = NT%) 84.6 % 45-70 H LYMPHOCYTE % (test code = LY%) 9.6 % 20-40 L MONOCYTE % (test code = MO%) 5.3 % 3-10 N EOSINOPHIL % (test code = EO%) 0.0 % 1-5 L BASOPHIL % (test code = BA%) 0.1 % 0.0-1.1 N NEUTROPHIL # (test code = NT#) 9.50 K/mm3 2.00-7.50 H LYMPHOCYTE # (test code = LY#) 1.08 K/mm3 1.50-4.00 L MONOCYTE # (test code = MO#) 0.59 K/mm3 0.2-0.8 N EOSINOPHIL # (test code = EO#) 0.00 K/mm3 0.04-0.4 L BASOPHIL # (test code = BA#) 0.01 K/mm3 0.02-0.10 L MANUAL DIFF REQUIRED (test code = NO MANUAL DIFF MDIFF) NUCLEATED RED BLOOD CELL (test 0 % 0-0 N code = NRBC) SPECIMEN COMMENT: POD #1- CT UP EXTREM W/O CONT [id number] 09:37:00 Patient Name: KAREN BREEN Unit No: [id number] EXAMS: CPT CODE: [id number] CT UP EXTREM W/[place] [address] CT SCAN RIGHT SHOULDER WITH RECONSTRUCTION DIAGNOSIS:1. 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 There is associated sclerosis with lucency undermining the posterior 3rd of the lesion. The osteonecrotic segment measures approximately 2 x 2 cm in size. There is focal flattening and the spherical morphology of the humeral head is loss in the area of abnormality. 2. There is moderate osteoarthritis of the joint. 3. No evidence of rotator cuff muscle belly atrophy. TECHNIQUE: Volumetric CT data of the right shoulder was obtainedwithout use of intravenous contrast. Images were then viewed in the axial, coronal and sagittal planes. CT radiation dose optimization is achieved for this examination by the use of a CT protocol in accordance with ACR practice standards and adherence to vp director of creative strategy's recommendations. INDICATION: PAIN COMPARISON: None. COMMENT: Findings are as described above. Limited incomplete evaluation of the right lung shows no gross abnormality. at 0937 Reported and signed by: Tina Brandon MD CC: Scar Smith MD Technologist: RT Omari(R) CTDI: DLP: Trnscrpt: 10/19/2019 (0937) [email or web address] [facility] NAME: KAREN BREEN [id number] PHYS: Noy Garcia : 1960 AGE: 59 SEX: F [place], [place] [address] LOC: Y.RAD PHONE #: [phone] EXAM DATE: 10/18/2019 STATUS: DEP CLI FAX #: [phone] RAD #: D/C DT PAGE 1 Signed Report Patient Name: KAREN BREEN Unit No: [id number] EXAMS: CPT CODE: [id number] CT UP EXTREM W/[place] [id number] <Continued> Orig Print D/T: S: 10/19/2019 (0940) [facility] NAME: KAREN BREEN [address] [place] [address] PHYS: Scar Garcia : 1960 AGE: 59 SEX: F [place], [place] [address] LOC: JANA PHONE #: [phone] EXAM DATE: 10/18/2019 STATUS: DEP CLI F AX #: [phone] RAD #: D/C DT PAGE 2 Signed ReportCOMPREHENSIVE METABOLIC [id number] 19:04:00 Test Item Value Reference Range Interpretation Comments SODIUM (test code = 140 mmol/L 136-145 N NA) POTASSIUM (test code = 4.2 mmol/L 3.5-5.1 N K) CHLORIDE (test code = 101.0 mmol/L 98-107 N CL) CARBON DIOXIDE (test 29.7 mmol/L 21-32 N code = CO2) GLUCOSE (test code = 110 mg/dL 70-110 N GLU) BLOOD UREA NITROGEN 13 mg/dL 7-18 N (test code = BUN) GLOMERULAR FILTRATION 42.6 >60 Unit o f measure: RATE (test code = GFR) mL/mi n/1.73 [id number] Range:Healthy Adults >90 mL/min/1.73 m2 For Chronic Kidney Disease: St age II Mild Decrease in GFR 60-90 St age III Moderate Decrease in GFR 30-59 Stage IV Severe Decre ase in GFR 15- 29 Stage V Kidney Failure <15 CREATININE (test code 1.29 mg/dL 0.55-1.30 N = CREAT) TOTAL PROTEIN (test 7.2 g/dL 6.4-8.2 N code = PROT) ALBUMIN (test code = 3.9 g/dL 3.4-5.0 N ALB) GLOBULIN (test code = 3.3 g/dL 2.2-4.2 N GLOB) ALBUMIN/GLOBULIN RATIO 1.2 0.7-2.0 N (test code = A/G) CALCIUM (test code = 8.9 mg/dL 8.2-10.1 N CA) BILIRUBIN TOTAL (test 0.34 mg/dL 0.2-1.00 N code = BILT) SGOT/AST (test code = 52.0 U/L 15-37 H AST) SGPT/ALT (test code = 53.0 U/L 12-78 N Please note new ALT) normal range. ALKALINE PHOSPHATASE 135 U/L 46-116 H TOTAL (test code = ALKP) PROTHROMBIN [id number] 18:44:00 Test Item Value Reference Range Interpretation Comments PROTHROMBIN TIME 11.1 secs 10.1-12.5 N PATIENT (test code = PTP) INTERNATIONAL NORMAL 0.99 <2.0 RECOMME NDED THERAPEUTIC RATIO (test code = RANGE FOR ORAL INR) ANTICOAGULANTTR EATMENT: CONDI TION INRProphylaxis of venous thrombos is in 2.0 - 3.0 high-risk medic al or surgical patientsTreatme nt of venous thrombos is 2.0 - 3.0Prevention o f embolism 2.0 - 3.0Prevention o f recurrent embol ism, or 3.0 - 4. 5 patients with mechanical pros thetic intravascular v thomas IS PATIENT ON ANTICOAGULANTS ? NHas Lab been notified if Patient is on Heparin Drip? NOTHROMBOPLASTIN TIME [id number] 18:44:00 Test Item Value Reference Range Interpretation Comments PTT ACTIVATED (test code = APTT) 29.8 secs 24.9-37.0 N IS PATIENT ON ANTICOAGULANTS ? NHas Lab been notified if Patient is on Heparin Drip? NOCBC W/AUTO [id number] 17:59:00 Test Item Value Reference Range Interpretation Comments WHITE BLOOD CELL (test code = WBC) 8.3 K/mm3 5.8-11.0 N RED BLOOD CELL (test code = RBC) 4.36 M/mm3 4.2-5.4 N HEMOGLOBIN (test code = HGB) 13.3 g/dL 12-16 N HEMATOCRIT (test code = HCT) 40.6 % 37-47 N MEAN CELL VOLUME (test code = MCV) 93 fL 80-98 N MEAN CELL HGB (test code = MCH) 30.5 pg 27-34 N MEAN CELL HGB CONCENTRATION (test 32.8 g/dL 30.8-34.1 N code = MCHC) RED CELL DISTRIBUTION WIDTH (test 12.7 % 11-16 N code = RDW) PLT (test code = PLT) 309 K/mm3 130-400 N MEAN PLATELET VOLUME (test code = 11.1 fL 8.9-12.1 N MPV) NEUTROPHIL % (test code = NT%) 68.3 % 45-70 N LYMPHOCYTE % (test code = LY%) 23.2 % 20-40 N MONOCYTE % (test code = MO%) 6.8 % 3-10 N EOSINOPHIL % (test code = EO%) 0.5 % 1-5 L BASOPHIL % (test code = BA%) 1.0 % 0.0-1.1 N NEUTROPHIL # (test code = NT#) 5.69 K/mm3 2.00-7.50 N LYMPHOCYTE # (test code = LY#) 1.93 K/mm3 1.50-4.00 N MONOCYTE # (test code = MO#) 0.57 K/mm3 0.2-0.8 N EOSINOPHIL # (test code = EO#) 0.04 K/mm3 0.04-0.4 N BASOPHIL # (test code = BA#) 0.08 K/mm3 0.02-0.10 N MANUAL DIFF REQUIRED (test code = NO MANUAL DIFF MDIFF) NUCLEATED RED BLOOD CELL (test 0 % 0-0 N code = NRBC)
[2021-02-24 19:06] LABS: Hematocrit 35.2 % (36.0-45.0); Lymphocytes % 21.1 % (15.3-44.8); MPV 9.4 fL (7.6-11.3)
[2021-02-24 19:07] LABS: Protime INR 0.95
--- NOTE | 2021-02-24 19:15 | RAD REPORT ---
EXAM DESCRIPTION: RAD - Chest Single View - 02/24/2021 7:03 pm CLINICAL HISTORY: CHEST PAIN COMPARISON: None TECHNIQUE: AP portable chest image was obtained 02/24/2021 7:03 pm . FINDINGS: Lungs are clear. Heart and vasculature are normal. No measurable pleural effusion and no p neumothorax. No acute bony abnormality seen. Bilateral shoulder joint prostheses are in place. No acu te aortic findings suspected. IMPRESSION: No acute cardiopulmonary process.
[2021-02-24 19:21] LABS: ALT/SGPT 62 U/L (12-78); AST/SGOT 39 U/L (15-37); Albumin 3.5 g/dL (3.4-5.0); Alkaline Phosphatase 135 U/L (45-117); BUN Blood Urea Nitrogen 14 mg/dL (7-18); Bicarbonate 25 mmol/L (21-32); Bilirubin Direct < 0.1 mg/dL (0-0.2); Bilirubin Total 0.3 mg/dL (0.2-1.0); Glucose Level 90 mg/dL (74-106); Magnesium 2.3 mg/dL (1.8-2.4); NT PRO-BNP 112 pg/mL (<125); Potassium 3.6 mmol/L (3.5-5.1); Protein, Total 6.5 g/dL (6.4-8.2); Sodium Level 142 mmol/L (136-145); Troponin (Emerg Dept Use Only) < 0.02 ng/mL (0.0-0.045)
[2021-02-24] MEDS ORDERED: ASPIRIN 81 MG CHEWABLE TABLET ONE (19:41)
[2021-02-24] MEDS ORDERED: FENTANYL CITR 100 MCG/2 ML ONE (19:42)
[2021-02-24] MEDS ORDERED: ONDANSETRON 4 MG/2 ML VIAL ONE (19:42)
[2021-02-24] MEDS ORDERED: LORAZEPAM 0.5 MG TABLET ONE (20:03)
--- NOTE | 2021-02-24 20:09 | ER ---
Nurse's Notes [facility] Name: Kimi Greenfield Age: 60 yrs Sex: Female : 1960 Arrival Date: 02/24/2021 Time: 18:33 Bed 6 Private MD: Diagnosis: Chest pain, unspecified;Anxiety disorder, unspecified Presentation: 02/24 18:33 Chief complaint: EMS states: toned out for chest pain while patient was driving home. ld1 Coronavirus screen: At this time, the client does not indicate any symptoms associated with coronavirus-19. Ebola Screen: No symptoms or risks identified at this time. Initial Sepsis Screen: Does the patient meet any 2 criteria? No. Patient's initial sepsis screen is negative. Initial Sepsis Screen: Does the patient meet any 2 criteria? Does the patient have a suspected source of infection? No. Patient's initial sepsis screen is negative. Risk Assessment: Do you want to hurt yourself or someone else? Patient reports no desire to harm self or others. Onset of symptoms was February 24, 2021. 18:33 Method Of Arrival: EMS: [facility] ld1 18:33 Acuity: MAXIM 3 ld1 Triage Assessment: 18:42 General: Appears in no apparent distress. uncomfortable, Behavior is calm, cooperative, ld1 appropriate for age. Pain: Complains of pain in chest Pain does not radiate. Pain currently is 8 out of 10 on a pain scale. Quality of pain is described as pressure, Pain began 1 hour ago. Is continuous. EENT: No signs and/or symptoms were reported regarding the EENT system. Neuro: Level of Consciousness is awake, alert, obeys commands, Oriented to person, place, time, situation, Appropriate for age. Cardiovascular: Capillary refill < 3 seconds Patient's skin is warm and dry. Rhythm is sinus tachycardia. Respiratory: Airway is patent Respiratory effort is even, unlabored, Respiratory pattern is regular, symmetrical. GI: Abdomen is flat, non-distended. : No signs and/or symptoms were reported regarding the genitourinary system. Derm: No signs and/or symptoms reported regarding the dermatologic system. Musculoskeletal: No signs and/or symptoms reported regarding the musculoskeletal system. Historical: - Allergies: 18:42 Savella; ld1 - Home Meds: 18:42 hydrocodone-acetaminophen 10-325 mg Oral tab 1 tab every 6 hours [Active]; Deconex DMX ld1 10-15-380 mg oral tab [Active]; bupropion HCl 150 mg Oral TbER 1 tab once daily [Active]; methocarbamol 500 mg Oral tab 2 tabs 4 times per day [Active]; carisoprodol 350 mg Oral tab [Active]; tramadol 50 mg Oral tab 1 tab every 4 hours [Active]; aspirin 81 mg Oral chew 1 tab once daily [Active]; pregabalin Oral 1 cap [Active]; furosemide 40 mg oral tab 1 tab once daily [Active]; - Immunization history:: Adult Immunizations up to date. - Social history:: Smoking status: Patient denies any tobacco usage or history of. Screenin:45 Abuse screen: Denies threats or abuse. Denies injuries from another. Nutritional ld1 screening: No deficits noted. Tuberculosis screening: No symptoms or risk factors identified. Fall Risk None identified. Assessment: 18:45 Reassessment: See triage assessment. Pain: Complains of pain in chest Pain does not ld1 radiate. Pain currently is 8 out of 10 on a pain scale. Quality of pain is described as pressure, Pain began 1 hour ago. Is continuous. 20:27 Reassessment: Patient and/or family updated on plan of care and expected duration. Pain ea level reassessed. Patient is alert, oriented x 3, equal unlabored respirations, skin warm/dry/pink. Discharge instruction given to patient verbalized the understanding of instruction. Pt left ED ambulatory tolerating well. Pt accompanied by . Vital Signs: 18:33 BP 145 / 87; Pulse 109; Resp 16; Temp 98.5(O); Pulse Ox 99% on R/A; Weight 79.38 kg; ld1 Height 5 ft. 4 in. (162.56 cm); Pain 8/10; 19:45 BP 146 / 78; Pulse 110; Resp 20; Pulse Ox 98% ; ea 20:15 BP 154 / 79; Pulse 106; Resp 18; Pulse Ox 97% ; ea 18:33 Body Mass Index 30.04 (79.38 kg, 162.56 cm) ld1 ED Course: 18:30 EKG done, by ED staff, reviewed by Isiah Ortega MD. 3 18:33 Patient arrived in ED. ld1 18:35 Triage completed. ld1 18:42 Arm band placed on right wrist. ld1 18:45 No provider procedures requiring assistance completed. Maintain EMS IV. Dressing ld1 intact. Good blood return noted. Site clean \T\ dry. Gauge \T\ site: 20G LAC. Patient maintains SpO2 saturation greater than 95% on room air. 18:45 Patient has correct armband on for positive identification. Placed in gown. Bed in low ld1 position. Call light in reach. Side rails up X2. panel monitor on. Pulse ox on. NIBP on. Door closed. Noise minimized. Warm blanket given. 18:46 Lonny Alonzo [facility] is [facility]. jr8 18:46 Isiah Ortega MD is Attending Physician. jr8 18:47 Dolores Styles, RN is Primary Nurse. ld1 20:09 Wyatt Christie MD is Referral Physician. jr8 20:28 IV discontinued, intact, bleeding controlled, No redness/swelling at site. Pressure ea dressing applied. Administered Medications: 19:39 Drug: Zofran (Ondansetron) 4 mg Route: IVP; Site: left forearm; ea 19:39 Drug: Aspirin Chewable Tablet 324 mg Route: PO; ea 19:40 Drug: fentaNYL (PF) 50 mcg Route: IVP; Site: left forearm; ea 19:44 Drug: Ativan (LORazepam) 0.5 mg Route: PO; ea Outcome: 20:09 Discharge ordered by . jr8 20:28 Discharged to home ambulatory, with family. ea 20:28 Condition: stable 20:28 Discharge instructions given to patient, Instructed on discharge instructions, follow up and referral plans. Demonstrated understanding of instructions, follow-up care. 20:30 Patient left the ED. ea Signatures: Lonny Alonzo PA PA jr8 Nohemy Humphrey [facility] Meghan Forbes RN RN ea Dolores Styles, XOCHITL RN ld1
--- NOTE | 2021-02-24 20:09 | EDPHYS ---
Physician Documentation [facility] Name: Kimi Greenfield Age: 60 yrs Sex: Female : 1960 Arrival Date: 02/24/2021 Time: 18:33 Bed 6 Private MD: ED Physician Isiah Ortega HPI: 02/24 19:48 This 60 yrs old Female presents to ER via EMS with complaints of Chest Pain. jr8 19:48 The patient or guardian reports chest pain that is located primarily in the substernal jr8 area. Onset: acutely. The pain does not radiate. Associated signs and symptoms: The patient has no apparent associated signs or symptoms. The chest pain is described as a pressure. Duration: The patient or guardian reports a single episode, that is still ongoing. Modifying factors: The symptoms are alleviated by nothing. the symptoms are aggravated by emotionally stressful situations. Severity of pain: At its worst the pain was moderate in the emergency department the pain is unchanged. The patient has not experienced similar symptoms in the past. The patient has not recently seen a physician. Patient stated that she had three members within the last few weeks. Since then has been having anxiety and chest tightness. Today had argument with son that caused the chest tightness but now is not going away. Historical: - Allergies: 18:42 Savella; ld1 - Home Meds: 18:42 hydrocodone-acetaminophen 10-325 mg Oral tab 1 tab every 6 hours [Active]; Deconex DMX ld1 10-15-380 mg oral tab [Active]; bupropion HCl 150 mg Oral TbER 1 tab once daily [Active]; methocarbamol 500 mg Oral tab 2 tabs 4 times per day [Active]; carisoprodol 350 mg Oral tab [Active]; tramadol 50 mg Oral tab 1 tab every 4 hours [Active]; aspirin 81 mg Oral chew 1 tab once daily [Active]; pregabalin Oral 1 cap [Active]; furosemide 40 mg oral tab 1 tab once daily [Active]; - Immunization history:: Adult Immunizations up to date. - Social history:: Smoking status: Patient denies any tobacco usage or history of. ROS: 19:48 Eyes: Negative for injury, pain, redness, and discharge, ENT: Negative for injury, jr8 pain, and discharge, Neck: Negative for injury, pain, and swelling, Respiratory: Negative for shortness of breath, cough, wheezing, and pleuritic chest pain, Abdomen/GI: Negative for abdominal pain, nausea, vomiting, diarrhea, and constipation, Back: Negative for injury and pain, MS/Extremity: Negative for injury and deformity, Skin: Negative for injury, rash, and discoloration, Neuro: Negative for headache, weakness, numbness, tingling, and seizure. 19:48 Cardiovascular: Positive for chest pain, Negative for edema, orthopnea, palpitations, paroxysmal nocturnal dyspnea. Exam: 19:48 Eyes: Pupils equal round and reactive to light, extra-ocular motions intact. Lids and jr8 lashes normal. Conjunctiva and sclera are non-icteric and not injected. Cornea within normal limits. Periorbital areas with no swelling, redness, or edema. ENT: Nares patent. No nasal discharge, no septal abnormalities noted. Tympanic membranes are normal and external auditory canals are clear. Oropharynx with no redness, swelling, or masses, exudates, or evidence of obstruction, uvula midline. Mucous membranes moist. Neck: Trachea midline, no thyromegaly or masses palpated, and no cervical lymphadenopathy. Supple, full range of motion without nuchal rigidity, or vertebral point tenderness. No Meningismus. Cardiovascular: Regular rate and rhythm with a normal S1 and S2. No gallops, murmurs, or rubs. Normal PMI, no JVD. No pulse deficits. Respiratory: Lungs have equal breath sounds bilaterally, clear to auscultation and percussion. No rales, rhonchi or wheezes noted. No increased work of breathing, no retractions or nasal flaring. Abdomen/GI: Soft, non-tender, with normal bowel sounds. No distension or tympany. No guarding or rebound. No evidence of tenderness throughout. Back: No spinal tenderness. No costovertebral tenderness. Full range of motion. Skin: Warm, dry with normal turgor. Normal color with no rashes, no lesions, and no evidence of cellulitis. MS/ Extremity: Pulses equal, no cyanosis. Neurovascular intact. Full, normal range of motion. Neuro: Awake and alert, GCS 15, oriented to person, place, time, and situation. Cranial nerves II-XII grossly intact. Motor strength 5/5 in all extremities. Sensory grossly intact. Cerebellar exam normal. Normal gait. 19:48 Chest/axilla: Inspection: normal, Palpation: tenderness, that is mild, of the anterior aspect of right upper chest, anterior aspect of left upper chest and mid-sternal area, that partially reproduces the patient's complaints. Vital Signs: 18:33 BP 145 / 87; Pulse 109; Resp 16; Temp 98.5(O); Pulse Ox 99% on R/A; Weight 79.38 kg; ld1 Height 5 ft. 4 in. (162.56 cm); Pain 8/10; 19:45 BP 146 / 78; Pulse 110; Resp 20; Pulse Ox 98% ; ea 20:15 BP 154 / 79; Pulse 106; Resp 18; Pulse Ox 97% ; ea 18:33 Body Mass Index 30.04 (79.38 kg, 162.56 cm) ld1 MDM: 18:48 Patient medically screened. jr8 20:06 The patient was given aspirin in the Emergency Department. Data reviewed: vital signs, [facility] nurses notes, lab test result(s), EKG, radiologic studies, plain films. Data interpreted: Pulse oximetry: on room air is 99 %. Interpretation: normal. Counseling: I had a detailed discussion with the patient and/or guardian regarding: the historical points, exam findings, and any diagnostic results supporting the discharge/admit diagnosis, lab results, radiology results, the need for outpatient follow up, a family practitioner, to return to the emergency department if symptoms worsen or persist or if there are any questions or concerns that arise at home. 20:07 ED course: Patient feeling better. No acute findings on labs, imaging, or ECG. Will [facility] send home to f/u with PCP and cardiology. Close return precautions given . 02/24 18:47 Order name: Basic Metabolic Panel [facility] 02/24 18:47 Order name: CBC with Diff [facility] 02/24 18:47 Order name: LFT's [facility] 02/24 18:47 Order name: Magnesium [facility] 02/24 18:47 Order name: NT PRO-BNP [facility] 02/24 18:47 Order name: PT-INR [facility] 02/24 18:47 Order name: Troponin (emerg Dept Use Only) [facility] 02/24 19:18 Order name: CBC with Automated Diff; Complete Time: 19:59 EDAR 02/24 19:18 Order name: Protime (+INR); Complete Time: 19:59 EDMS 02/24 19:21 Order name: Basic Metabolic Panel; Complete Time: 19:59 EDMS 02/24 19:21 Order name: Liver (Hepatic) Function; Complete Time: 19:59 EDMS 22 19:21 Order name: Troponin (Emerg Dept Use Only); Complete Time: 19:59 EDMS 22 19:21 Order name: NT PRO-BNP; Complete Time: 19:59 EDMS 22 19:21 Order name: Magnesium; Complete Time: 19:59 EDMS 22 18:47 Order name: XRAY Chest (1 view) [facility] 02/24 18:47 Order name: EKG; Complete Time: 18:48 [facility] 02/24 18:47 Order name: Cardiac monitoring; Complete Time: 18:48 [facility] 02/24 18:47 Order name: EKG - Nurse/Tech; Complete Time: 18:48 [facility] 02/24 18:47 Order name: IV Saline Lock; Complete Time: 18:47 [facility] 02/24 18:47 Order name: Labs collected and sent; Complete Time: 18:52 [facility] 02/24 18:47 Order name: O2 Per Protocol; Complete Time: 18:48 [facility] 02/24 18:47 Order name: O2 Sat Monitoring; Complete Time: 18:48 [facility] 02/24 19:15 Order name: RAD; Complete Time: 19:17 EDMS Administered Medications: 19:39 Drug: Zofran (Ondansetron) 4 mg Route: IVP; Site: left forearm; ea 19:39 Drug: Aspirin Chewable Tablet 324 mg Route: PO; ea 19:40 Drug: fentaNYL (PF) 50 mcg Route: IVP; Site: left forearm; ea 19:44 Drug: Ativan (LORazepam) 0.5 mg Route: PO; ea Disposition: 02/25 06:15 Co-signature as Attending Physician, Isiah Ortega MD I agree with the assessment and kdr plan of care. Disposition: 02/24/21 20:09 Discharged to Home. Impression: Chest pain, unspecified, Anxiety disorder, unspecified. - Condition is Stable. - Discharge Instructions: Panic Attacks, Nonspecific Chest Pain, [id number]. - Medication Reconciliation Form, Thank You Letter, Antibiotic Education, Prescription Opioid Use form. - Follow up: Wyatt Christie MD; When: 1 - 2 days; Reason: Recheck today's complaints, Continuance of care, Re-evaluation by your physician. - Problem is new. - Symptoms have improved. Signatures: Dispatcher [employer] EDMS Isiah Ortega MD MD kdr Roszak, Josh, PA PA jr8 Meghan Forbes RN RN Dolores Rubin RN RN ld1 Corrections: (The following items were deleted from the chart) 02/24 20:30 20:09 02/24/2021 20:09 Discharged to Home. Impression: Chest pain, unspecified; Anxiety ea disorder, unspecified. Condition is Stable. Forms are Medication Reconciliation Form, Thank You Letter, Antibiotic Education, Prescription Opioid Use. Follow up: Wyatt Christie; When: 1 - 2 days; Reason: Recheck today's complaints, Continuance of care, Re-evaluation by your physician. Problem is new. Symptoms have improved. jr8
[2021-02-24 20:46] VITALS: TEMP 98.5
[2021-02-24 20:50] VITALS: BP 154/79; O2SAT 97
--- NOTE | 2021-02-25 16:31 | EKG ---
Test Date: 2021-02-24 Test Time: 18:25:24 Clinical Asst: RONDA MEASUREMENT RESULTS: Intervals: Rate: 109 [place]: 118 QRSD: 74 QT: 332 QTc: 447 [place]: P: 72 [place]: 118 QRS: 20 T: 58 INTERPRETIVE STATEMENTS: Sinus tachycardia Possible Left atrial enlargement Borderline ECG No previous ECG available for comparison Electronically Signed On 02-25-21 16:29:47 CDT by Wyatt Christie
== END 2021-02-24 20:30 | disposition home or self-care (01) ==
LOC: ER 18:24
DX: F41.9 Anxiety disorder, unspecified (principal); Z79.82 Long term (current) use of aspirin
CPT/HCPCS: 85025; 80048; 36415; 83735; 85610; 80076; 84484; 83880; 71045; J3010; J2405; 93005; 96374; 96375; 99285